=== PATIENT | male | born 1950 | race Caucasian/White ===

== ENCOUNTER 2024-09-17 08:56 | Emergency (ER) | payer OTHER, MEDICARE ==
[2024-09-17 09:48] LABS: ANION GAP 12.8 mmol/L (5.0-15.0); BUN/CREATININE RATIO 24.7 (6-25); CALCIUM 8.9 mg/dL (8.5-10.1); CARBON DIOXIDE,CO2 26.7 mmol/L (21.0-32.0); CREATININE 0.77 mg/dL (0.70-1.30); EST CRCL DRUG DOSING (CG) 74.8 mL/min; POTASSIUM,K 3.5 mmol/L (3.5-5.1)
== END 2024-09-17 09:30 | disposition home or self-care (01) ==
LOC: LB.ED 08:56
DX: U07.1 COVID-19 (principal)
CPT/HCPCS: 36415; 80048; 99283